=== PATIENT | female | born 1980 | race Two or more races ===

== ENCOUNTER 2024-04-16 11:03 | Emergency (ER) | payer MEDICAID ==
[~2024-04-16] VITALS: Ht 170.2 cm; Wt 65.8 kg
[2024-04-16 11:26] VITALS: BP 116/65; TEMP 97.9
[2024-04-16 13:31] VITALS: O2SAT 98
== END 2024-04-16 15:39 | disposition home or self-care (01) ==
LOC: ER 12:17
DX: N64.4 Mastodynia (principal)